=== PATIENT | male | born 2005 | race Caucasian/White ===

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

== ENCOUNTER 2023-01-17 14:31 | Inpatient (IN) | payer MEDICAID, OTHER ==
[~2023-01-17] VITALS: Ht 172.7 cm; Wt 99.8 kg
[~2023-01-17 14:31] MED LIST: ACET-10509 PO; NAPR-1704 PO
[2023-01-17 14:40] VITALS: BP 118/51; PULSE 106; RESP 18; TEMP 98; O2SAT 99
[2023-01-17] MEDS ORDERED: NACL 0.9% 1,000 ML IV ONE (14:40)
[2023-01-17 15:06] LABS: BASOPHILS % (AUTO) 0.5 % (0.0-2.0); EOSINOPHILS # (AUTO) 0.2 K/uL (0-0.4); EOSINOPHILS % (AUTO) 2.7 % (0.0-4.0); HEMATOCRIT 43.4 % (36-52); HEMOGLOBIN 14.5 g/dL (12.0-18.0); LYMPHOCYTES # (AUTO) 3.4 K/uL (2.0-11.5); LYMPHOCYTES % (AUTO) 36.2 % (20.5-51.1); MEAN CORPUSCULAR HEMOGLOBIN 27 pg (27-31); MEAN CORPUSCULAR HGB CONC 34 g/dL (33-37); MEAN CORPUSCULAR VOLUME 80.4 fL (80-94); MONOCYTES # (AUTO) 0.9 K/uL (0.8-1.0); MONOCYTES % (AUTO) 10.1 % (1.7-9.3); NEUTROPHILS # (AUTO) 4.7 K/uL (1.8-7.7); NEUTROPHILS % (AUTO) 50.5 % (42.2-75.2); PLATELET COUNT (AUTO) 287 K/uL (140-450); RED CELL DISTRIBUTION WIDTH 13.6 % (11.6-13.7); WHITE BLOOD COUNT (AUTO) 9.3 K/uL (4.5-11.0)
[2023-01-17] MEDS ORDERED: ceFAZolin 1,000 MG VIAL ONE (15:09)
[2023-01-17 15:19] LABS: ALBUMIN 3.3 g/dL (3.4-5.0); ANION GAP 14.3 (8-16); CALCIUM 8.4 mg/dL (8.5-10.1); CARBON DIOXIDE 25.2 mmol/L (21-32); CREATININE 0.8 mg/dL (0.6-1.3); POTASSIUM 3.5 mmol/L (3.5-5.1); TOTAL BILIRUBIN 0.3 mg/dL (0.0-1.0)
[2023-01-17 15:29] LABS: INR 0.97 (0.8-1.2); PARTIAL THROMBOPLASTIN TIME 27.9 secs (22-35.6); PROTHROMBIN TIME 10.2 secs (10.8-13.4)
[2023-01-17] MEDS ORDERED: HYDROcodone/APAP 7.5/325 MG 1 TAB PO ONE (15:40)
[2023-01-17] MEDS ORDERED: HYDROcodone/APAP 7.5/325 MG 1 TAB ONE (18:36)
[2023-01-17] MEDS ORDERED: DEXT 5% / NACL 0.45% 1,000 ML IV ONE (20:10)
[2023-01-17] MEDS ORDERED: ACETAMINOPHEN 325 MG TAB PO PRN (23:40)
[2023-01-17] MEDS ORDERED: ONDANSETRON 4 MG/2 ML VIAL IVP PRN (23:40)
[2023-01-18 07:24] LABS: BASOPHILS % (AUTO) 0.3 % (0.0-2.0); EOSINOPHILS # (AUTO) 0.1 K/uL (0-0.4); EOSINOPHILS % (AUTO) 0.6 % (0.0-4.0); HEMATOCRIT 42.5 % (36-52); HEMOGLOBIN 14.2 g/dL (12.0-18.0); LYMPHOCYTES # (AUTO) 1.9 K/uL (2.0-11.5); LYMPHOCYTES % (AUTO) 17.8 % (20.5-51.1); MEAN CORPUSCULAR HEMOGLOBIN 27 pg (27-31); MEAN CORPUSCULAR HGB CONC 33 g/dL (33-37); MONOCYTES # (AUTO) 1.4 K/uL (0.8-1.0); MONOCYTES % (AUTO) 12.6 % (1.7-9.3); NEUTROPHILS # (AUTO) 7.4 K/uL (1.8-7.7); NEUTROPHILS % (AUTO) 68.7 % (42.2-75.2); PLATELET COUNT (AUTO) 259 K/uL (140-450); RED BLOOD CELL COUNT(AUTO) 5.25 MIL/uL (4.20-6.10); RED CELL DISTRIBUTION WIDTH 13.5 % (11.6-13.7); WHITE BLOOD COUNT (AUTO) 10.8 K/uL (4.5-11.0)
[2023-01-18 08:29] LABS: ANION GAP 15.1 (8-16); CALCIUM 8.4 mg/dL (8.5-10.1); CARBON DIOXIDE 25.5 mmol/L (21-32); CREATININE 0.7 mg/dL (0.6-1.3); POTASSIUM 3.6 mmol/L (3.5-5.1); TOTAL BILIRUBIN 0.4 mg/dL (0.0-1.0); TOTAL PROTEIN, SERUM 6.7 g/dL (6.4-8.2)
[2023-01-18 08:53] VITALS: BP 99/83; PULSE 89; RESP 15; TEMP 97.5; O2SAT 98
[2023-01-18 09:47] VITALS: PULSE 89; RESP 15; O2SAT 98
[2023-01-18] MEDS ORDERED: ONDANSETRON 4 MG/2 ML VIAL IVP PRN (10:45)
[2023-01-18 12:00] VITALS: BP 106/57; PULSE 85; RESP 17; TEMP 97.6; O2SAT 99
[2023-01-18] MEDS ORDERED: POTASSIUM CHL 20 MEQ/D5-1/2NS 1,000 ML IV ONE (12:00)
[2023-01-18] MEDS ORDERED: BUPIVACAINE-MPF 0.5% 30 ML VIAL INJ ONE ×2 (13:28→15:37)
[2023-01-18] MEDS ORDERED: ACETAMINOPHEN 100 ML IV ONE (13:46)
[2023-01-18] MEDS ORDERED: ceFAZolin 2,000 MG VIAL ONE (13:49)
[2023-01-18] MEDS ORDERED: MIDAZOLAM 2 MG/2 ML VIAL ONE (13:49)
[2023-01-18] MEDS ORDERED: fentaNYL citrate 0.05 MG/ML VIAL ONE ×2 (13:49→14:44)
[2023-01-18] MEDS ORDERED: PROPOFOL 200 MG/20 ML VIAL IV ONE (14:00)
[2023-01-18] MEDS ORDERED: LIDOCAINE 2% 100 MG/5 ML SYR IVP ONE (14:01)
[2023-01-18] MEDS ORDERED: SEVOFLURANE 250 ML BTL INH ONE (14:02)
[2023-01-18] MEDS ORDERED: NEOMYCIN/POLYMYXIN/BACITRACIN OIN 15 GM TUBE TP ONE (14:23)
[2023-01-18] MEDS ORDERED: ONDANSETRON 4 MG/2 ML VIAL ONE ×2 (14:45→14:46)
[2023-01-18] MEDS ORDERED: PHENYLEPHRINE 10 MG/ML VIAL ONE (14:46)
[2023-01-18] MEDS ORDERED: LIDOCAINE 1% 500 MG/ 50 ML VIAL INJ ONE (15:05)
[2023-01-18] MEDS ORDERED: TRANEXAMIC ACID 1,000 MG/10 ML VIAL ONE (15:10)
[2023-01-18] MEDS ORDERED: VANCOMYCIN 1,000 MG VIAL ONE (15:27)
[2023-01-18] MEDS ORDERED: LIDOCAINE 1% 500 MG/50 ML VIAL ONE (15:39)
[2023-01-18] MEDS ORDERED: LIDOCAINE/EPI MPF 1%1:200000 30 ML VIAL INJ ONE (15:39)
[2023-01-18] MEDS: HYDROcodone/APAP 5/325 MG 1 TAB TAB PO PRN ×2 (17:11→22:19)
[2023-01-18 20:00] VITALS: BP 128/75; PULSE 70; PULSE 82; PULSE 90; RESP 18; RESP 19; TEMP 98.2; O2SAT 99
[2023-01-19] VITALS: BP 132/71; PULSE 96; RESP 18; TEMP 98.8; O2SAT 99
[2023-01-19 04:00] VITALS: BP 113/74; PULSE 70; RESP 18; TEMP 98.3; O2SAT 99
[2023-01-19] MEDS ORDERED: cephALEXin 500 MG CAP PO SCH (05:00)
[2023-01-19] MEDS: HYDROcodone/APAP 5/325 MG 1 TAB TAB PO PRN (05:00)
[2023-01-19 08:00] VITALS: BP 123/66; PULSE 53; RESP 18; TEMP 97.1; O2SAT 98; O2SAT 99
[2023-01-19] MEDS ORDERED: ASPIRIN 325 MG TABEC PO SCH (09:00)
[2023-01-19 09:42] LABS: CANNABINOID, URINE POSITIVE ng/mL (NEG <=50)
[2023-01-19 09:43] LABS: AMPHETAMINE, URINE NEGATIVE ng/ml (NEG <=1000); BARBITURATE, URINE NEGATIVE ng/ml (NEG <=200); BENZODIAZEPINE, URINE NEGATIVE ng/mL (NEG <=200); COCAINE, URINE NEGATIVE ng/mL (NEG <=300); OPIATE, URINE POSITIVE ng/mL (NEG <=2000); PHENCYCLIDINE SCREEN,URINE NEGATIVE ng/mL (NEG <=25)
[2023-01-19] MEDS ORDERED: ACET-9525 PO (10:23)
[2023-01-19] MEDS ORDERED: ASPI-1206 PO (10:23)
[2023-01-19] MEDS ORDERED: CEPH-588 PO (10:23)
[2023-01-19 13:17] VITALS: BP 123/66; PULSE 53; RESP 18; TEMP 97.1
[2023-01-20] MEDS ORDERED: ERGOCALCIFEROL 50,000 IU SGL PO SCH (09:00)
== END 2023-01-19 16:01 | disposition home or self-care (01) | DRG 317 ==
LOC: MED 14:31 → MMU 20:09 → MIC 01-18 05:46 → MTU 01-18 18:25 → MMU 01-19 11:13
PROC: 0QSF04Z Reposition Left Patella with Internal Fixation Device, Open Approach (ICD-10-PCS; 2023-01-18)
PROC: 0LQR0ZZ Repair Left Knee Tendon, Open Approach (ICD-10-PCS; principal; 2023-01-18 15:00)
DX: S82.042B Displaced comminuted fracture of left patella, initial encounter for open fracture type I or II (principal); E44.0 Moderate protein-calorie malnutrition; S76.122A Laceration of left quadriceps muscle, fascia and tendon, initial encounter; S69.92XA Unspecified injury of left wrist, hand and finger(s), initial encounter; E66.9 Obesity, unspecified; Z79.1 Long term (current) use of non-steroidal anti-inflammatories (NSAID); Z79.899 Other long term (current) drug therapy; Y93.89 Activity, other specified; Y92.89 Other specified places as the place of occurrence of the external cause; Y99.8 Other external cause status; W33.01XA Accidental discharge of shotgun, initial encounter; Z68.33 Body mass index [BMI] 33.0-33.9, adult
CPT/HCPCS: 36415; 73130; 73562; 80053; 80305; 85025; 85610; 85730; 86886; 86900; 86901; 87081; 90471; 90715; 96361; 96374; 99285; C1713; J0690; J2001; J2250; J2370; J2405; J2704; J3010; J3370; J3490; J7060; J7120; Q0092; Q9967

== ENCOUNTER 2023-01-29 15:02 | Emergency (ER) | payer MEDICAID ==
[~2023-01-29] VITALS: Ht 180.3 cm; Wt 92.5 kg
[~2023-01-29 15:02] MED LIST changes: +ACET-9525 PO; +ASPI-1206 PO; +CEPH-588 PO; -NAPR-1704 PO
[2023-01-29 15:50] VITALS: BP 118/84; PULSE 92; RESP 18; TEMP 98.4; O2SAT 96
[2023-01-29] MEDS ORDERED: SULF-58 PO (17:11)
[2023-01-29] MEDS ORDERED: CEPH-588 PO (17:11)
[2023-01-29] MEDS ORDERED: ACET-8905 PO (17:20)
[2023-01-29 17:25] VITALS: BP 121/80; PULSE 88; RESP 16; TEMP 98; O2SAT 99
== END 2023-01-29 17:25 | disposition home or self-care (01) ==
LOC: MED 15:02
DX: M79.645 Pain in left finger(s) (principal); Z48.00 Encounter for change or removal of nonsurgical wound dressing; Z79.899 Other long term (current) drug therapy
CPT/HCPCS: 99283